=== PATIENT | female | born 1960 ===

== ENCOUNTER → 2022-01-31 12:54 | Outpatient (BNVA) | payer OTHER, SELFPAY | PROVIDERS: PCP Internal Medicine; Visit Provider Nurse Practitioner Family | DX: G43.009 Migraine without aura, not intractable, without status migrainosus (principal); R06.83 Snoring; G47.19 Other hypersomnia | CPT/HCPCS: 99212 ==

== ENCOUNTER 2023-05-26 15:14 | Outpatient (AMB) | payer OTHER, SELFPAY ==
--- NOTE | 2023-05-26 15:16 | MHC.OFFVIS ---
Intake Vital Signs 05/26/23 15:18 Height 5 ft 5 in Weight 179 lb BMI 29.8 Pulse 68 Pulse Source Pulse Oximeter Intake Visit Reasons: f/u appt for migraines-CONF Intake Note: Patient presents for follow up appt. I*m still getting them in the month of april I had a lot of headaches and nausea Allergies No Known Allergies Allergy (Verified 05/26/23 15:19) Medication List - Last Reconciled 05/26/23 by BENNY Dinero acetaminophen mg PO ammonium lactate 12% appl topical aripiprazole 2 mg PO DAILY atorvastatin 10 mg PO DAILY blood sugar diagnostic (FreeStyle Lite Strips) As directed blood-glucose meter (FreeStyle Lite Meter kit) As directed calcium carbonate-vitamin D3 600 mg-10 mcg (400 unit) 2 tabs PO DAILY clotrimazole 1% appl topical DAILY cyclobenzaprine 10 mg PO TID diclofenac sodium 1% 4 grams topical BID diclofenac sodium 75 mg PO BID duloxetine 30 mg PO DAILY duloxetine 60 mg PO DAILY gabapentin mg PO hydroxyzine HCl 25 mg PO DAILY lancets (FreeStyle Lancets) As directed loperamide mg PO loratadine 10 mg PO DAILY magnesium oxide 400 mg PO BEDTIME 30 days meloxicam 15 mg PO DAILY naratriptan take 1/2 - 1 tab at onset of headache; if no relief may repeat 1 tab after at least 4 hrs; max = 2 tabs/24 hrs PO 30 days omega-3 fatty acids-fish oil 300-1,000 mg 1 cap PO DAILY PRN riboflavin (vitamin B2) 400 mg PO DAILY 30 days trazodone 150 mg PO BEDTIME PRN HPI HPI Comments History of Present Illness Details 62-yr-old female presents for f/u visit of migraine. Pt is accompanied by family. Last seen by this account underwriter in 2021. Pt denies any significant interval medical changes. Pt reports she had 1 severe migraine attack, lasting 2 days, and a few mild-mod migraine attacks lasting 1 day per month. The associated nausea is bothersome- meclizine 25mg qd prn- has been helpful. Using Tylenol for milder headaches- helps only some. Using Naratriptan for severe migraine, takes 2 tabs and it will help. Baseline headache characteristics: 8-9/10, pounding eye pain , right frontal, temporal through occipital region pain, a/w photophobia, phonophobia, allodynia, nausea, off-balance dizziness, fatigue, activity intolerance. Pt states she forgot to do HST. She is sleeping on Trazodone. She continues to snore. Having less daytime tiredness. [facility] Medical History (Updated 05/26/23 @ 16:37 by BENNY Dinero) Hypercholesteremia Cervical spondylosis Nephrolithiasis IBS (irritable bowel syndrome) Anxiety Depression Multilevel neural foraminal stenosis Surgical History Hx of colonoscopy Hx of appendectomy Hx of cholecystectomy Hx of hysterectomy Family History Sister Sleep apnea HTN (hypertension) Diabetes Daughter Sleep apnea Son Sleep apnea Father HTN (hypertension) Diabetes Brother HTN (hypertension) Diabetes Social History Household Members: None Alcohol intake: never Patient Tobacco Use Status: Current everyday Tobacco user Cigarettes Per Day: 10 Physical Exam Vital Signs: Last Vital Signs Pulse 68 05/26/23 15:18 BMI result Body Mass Index 29.8 Const General: cooperative and no acute distress Orientation/consciousness: patient oriented x3 Resp Effort & Inspection: normal respiratory effort and able to speak in complete sentences Neuro General: patient oriented x3 Cranial nerves: Yes CN's II-XII intact bilaterally Cognition (Neuro): normal cognition Psych Appearance: grossly normal Mental Status: mental status grossly normal Speech and movement: Normal speech and movement present Affect: normal affect Attitude: cooperative Assessment & Plan Assessment & Plan (1) Migraine without aura: Code(s): G43.009 - Migraine without aura, not intractable, without status migrainosus (2) Nausea: Code(s): R11.0 - Nausea (3) Snoring: Code(s): R06.83 - Snoring (4) Sleep difficulties: Code(s): G47.9 - Sleep disorder, unspecified Plan For migraine prevention: Continue Riboflavin and Magnesium. Start Amitriptyline 10mg qhs. Migraine tx contraindications: Topiramate d/t h/o kidney stones. Futuie consideration- low dose BB. ? For migraine acute treatment: Continue Naratriptan prn at onset of migraine, may take w/ Tylenol prn. Meclizine 25mg bid prn nausea. Information shared on OTC migraine tx options- cooling caps, green light tx, etc. Previous acute migraine tx's: Sumatriptan- caused sleepiness. ? For sleep and am headaches- Pt never did undergo HST to assess for sleep apnea- states she forgot but feels she is sleeping better now. Will monitor sleep for now. f/u in 3-4 months or sooner prn Medications: New amitriptyline 10 mg PO BEDTIME 30 days 30 tabs 3RF meclizine or nausea 25 mg PO BID 30 days PRN 30 tabs 1RF dizziness Refilled riboflavin (vitamin B2) 400 mg PO DAILY 30 days 30 tabs 6RF naratriptan take 1/2 - 1 tab at onset of headache; if no relief may repeat 1 tab after at least 4 hrs; max = 2 tabs/24 hrs PO 30 days 12 tabs 6RF Coding Level of Care Code Est Pt Level 4 (73889) Diagnoses Migraine without aura G43.009 Nausea R11.0 Snoring R06.83 Sleep difficulties G47.9
[2023-05-26 15:18] VITALS: PULSE 68; BMI 29.8
== END 2023-05-26 16:08 | disposition home or self-care (01) ==
PROVIDERS: PCP Internal Medicine; Visit Provider Nurse Practitioner Family
DX: G43.009 Migraine without aura, not intractable, without status migrainosus (principal); R11.0 Nausea; R06.83 Snoring; G47.9 Sleep disorder, unspecified
CPT/HCPCS: 99214

== ENCOUNTER → 2023-05-26 15:14 | Outpatient (BNVA) | payer OTHER, SELFPAY | PROVIDERS: PCP Internal Medicine; Visit Provider Nurse Practitioner Family | DX: G43.009 Migraine without aura, not intractable, without status migrainosus (principal); R11.0 Nausea; R06.83 Snoring; G47.9 Sleep disorder, unspecified | CPT/HCPCS: 99212 ==

== ENCOUNTER 2023-09-24 14:07 | Outpatient (AMB) | payer OTHER, SELFPAY ==
--- NOTE | 2023-09-24 14:11 | A.OFFVIS_ITS ---
Vital Signs 09/24/23 14:18 Height 5 ft 5 in Weight 183 lb 4 oz BMI 30.5 BP 116/70 Blood Pressure Location Lt brachial Position Sitting Pulse 77 Pulse Source Pulse Oximeter Pulse Oximetry (%) 96 Oxygen Delivery Method Room Air Intake Visit Reasons: 3-4 Month-F/U - LVM Intake Note: Patient presents for f/u. doing better with headaches Pharmacy Intake Technician services declined- declination form signed by pt. Pharmacy Intake Technician Required: Yes Pharmacy Intake Technician Name: Valerie AtkinsTe mcnally. Information Interpreted: non-clinical & clinical Allergies No Known Allergies Allergy (Verified 09/24/23 14:18) Medication List - Last Reconciled 09/24/23 by BENNY Dinero acetaminophen mg PO amitriptyline 10 mg PO BEDTIME 30 days ammonium lactate 12% appl topical aripiprazole 2 mg PO DAILY atorvastatin 10 mg PO DAILY blood sugar diagnostic (FreeStyle Lite Strips) As directed blood-glucose meter (FreeStyle Lite Meter kit) As directed calcium carbonate-vitamin D3 600 mg-10 mcg (400 unit) 2 tabs PO DAILY clotrimazole 1% appl topical DAILY cyclobenzaprine 10 mg PO TID diclofenac sodium 1% 4 grams topical BID diclofenac sodium 75 mg PO BID duloxetine 30 mg PO DAILY duloxetine 60 mg PO DAILY gabapentin mg PO hydroxyzine HCl 25 mg PO DAILY lancets (FreeStyle Lancets) As directed loperamide mg PO loratadine 10 mg PO DAILY magnesium oxide 400 mg PO BEDTIME 30 days meclizine 25 mg PO BID PRN 30 days meloxicam 15 mg PO DAILY naratriptan take 1/2 - 1 tab at onset of headache; if no relief may repeat 1 tab after at least 4 hrs; max = 2 tabs/24 hrs PO 30 days omega-3 fatty acids-fish oil 300-1,000 mg 1 cap PO DAILY PRN riboflavin (vitamin B2) 400 mg PO DAILY 30 days trazodone 150 mg PO BEDTIME PRN HPI Comments Details: 62-yr-old female presents for f/u visit. Pt accompanied by her granddtr who pt requests assist w/ [place] interpretation. Pt denies any significant interval medical changes. Pt states she is sleeping better and feeling better overall since starting Amitriptyline. Has only had the start of a mild headache, which has responded well to Naratriptan. Pt has needed to use Naratriptan twice in the last 2 months. Uses meclizine for nausea which helps. Baseline headache characteristics: 8-9/10, pounding eye pain , right frontal, temporal through occipital region pain, a/w photophobia, phonophobia, allodynia, nausea, off-balance dizziness, fatigue, activity intolerance. [facility] Medical History (Updated 05/26/23 @ 16:37 by BENNY Dinero) Hypercholesteremia Cervical spondylosis Nephrolithiasis IBS (irritable bowel syndrome) Anxiety Depression Multilevel neural foraminal stenosis Surgical History Hx of colonoscopy Hx of appendectomy Hx of cholecystectomy Hx of hysterectomy Family History Sister Sleep apnea HTN (hypertension) Diabetes Daughter Sleep apnea Son Sleep apnea Father HTN (hypertension) Diabetes Brother HTN (hypertension) Diabetes Social History Household Members: None Alcohol intake: never Patient Tobacco Use Status: Current everyday Tobacco user Cigarettes Per Day: 10 Physical Exam Vital Signs: Last Vital Signs Pulse 77 09/24/23 14:18 BP 116/70 09/24/23 14:18 Pulse Ox 96 09/24/23 14:18 Oxygen Delivery Method Room Air 09/24/23 14:18 BMI result Body Mass Index 30.5 Const General: cooperative and no acute distress Orientation/consciousness: patient oriented x3 Resp Effort & Inspection: normal respiratory effort and able to speak in complete sentences Neuro General: patient oriented x3 Cranial nerves: Yes CN's II-XII intact bilaterally Cognition (Neuro): normal cognition Psych Appearance: grossly normal Mental Status: mental status grossly normal Speech and movement: Normal speech and movement present Affect: normal affect Attitude: cooperative Assessment & Plan Assessment & Plan (1) Migraine without aura: Code(s): G43.009 - Migraine without aura, not intractable, without status migrainosus Category: Medical (2) Sleep difficulties: Code(s): G47.9 - Sleep disorder, unspecified Category: Medical (3) Nausea: Code(s): R11.0 - Nausea Category: Medical Plan For migraine prevention: Continue Riboflavin and Magnesium. Continue Amitriptyline 10mg qhs. Migraine tx contraindications: Topiramate d/t h/o kidney stones. Futuie consideration- low dose BB. ? For migraine acute treatment: Continue Naratriptan prn at onset of migraine, may take w/ Tylenol prn. Continue Meclizine 25mg bid prn nausea. Information shared on OTC migraine tx options- cooling caps, green light tx, etc. Previous acute migraine tx's: Sumatriptan- caused sleepiness. ? For sleep and am headaches- Pt never did undergo HST to assess for sleep apnea- she previously forgot, but feels she is sleeping better now. Amitriptyline is helping. Monitor. ? f/u in 6 months or sooner prn Medications: Refilled magnesium oxide 400 mg PO BEDTIME 30 days 30 tabs 6RF naratriptan take 1/2 - 1 tab at onset of headache; if no relief may repeat 1 tab after at least 4 hrs; max = 2 tabs/24 hrs PO 30 days 12 tabs 6RF amitriptyline 10 mg PO BEDTIME 30 days 30 tabs 6RF riboflavin (vitamin B2) 400 mg PO DAILY 30 days 30 tabs 6RF Coding Level of Care Code Est Pt Level 4 (54921) Diagnoses Migraine without aura G43.009 Sleep difficulties G47.9 Nausea R11.0
[2023-09-24 14:18] VITALS: BP 116/70; PULSE 77; O2SAT 96; BMI 30.5
== END 2023-09-24 14:38 | disposition home or self-care (01) ==
PROVIDERS: PCP Internal Medicine; Visit Provider Nurse Practitioner Family
DX: G43.009 Migraine without aura, not intractable, without status migrainosus (principal); G47.9 Sleep disorder, unspecified; R11.0 Nausea
CPT/HCPCS: 99214

== ENCOUNTER → 2023-09-24 14:07 | Outpatient (BNVA) | payer OTHER, SELFPAY | PROVIDERS: PCP Internal Medicine; Visit Provider Nurse Practitioner Family | DX: G43.009 Migraine without aura, not intractable, without status migrainosus (principal); G47.9 Sleep disorder, unspecified; R11.0 Nausea | CPT/HCPCS: 99212 ==

== ENCOUNTER 2024-04-21 12:45 | Outpatient (AMB) | payer OTHER, SELFPAY ==
[2024-04-21 12:58] VITALS: BP 92/64; PULSE 90; O2SAT 96
--- NOTE | 2024-04-21 12:58 | MHC.OFFVIS ---
Vital Signs 04/21/24 12:58 Height 5 ft 5 in Weight 180 lb BMI 30.0 BP 92/64 Blood Pressure Location Lt brachial Position Sitting Pulse 90 Pulse Source Pulse Oximeter Pulse Oximetry (%) 96 Oxygen Delivery Method Room Air Intake Visit Reasons: Follow up Full Stack Php Developer Required: No Accompanied by: Grand Child Allergies No Known Allergies Allergy (Verified 04/21/24 13:03) Medication List - Last Reconciled 04/21/24 by BENNY Dinero acetaminophen mg PO amitriptyline 10 mg PO BEDTIME 30 days ammonium lactate 12% appl topical aripiprazole 2 mg PO DAILY atorvastatin 10 mg PO DAILY blood sugar diagnostic (FreeStyle Lite Strips) As directed blood-glucose meter (FreeStyle Lite Meter kit) As directed calcium carbonate-vitamin D3 600 mg-10 mcg (400 unit) 2 tabs PO DAILY clotrimazole 1% appl topical DAILY cyclobenzaprine 10 mg PO TID diclofenac sodium 1% 4 grams topical BID diclofenac sodium 75 mg PO BID duloxetine 30 mg PO DAILY duloxetine 60 mg PO DAILY gabapentin mg PO hydroxyzine HCl 25 mg PO DAILY lancets (FreeStyle Lancets) As directed loperamide mg PO loratadine 10 mg PO DAILY magnesium oxide 400 mg PO BEDTIME 30 days meclizine 25 mg PO BID PRN 30 days meloxicam 15 mg PO DAILY naratriptan take 1/2 - 1 tab at onset of headache; if no relief may repeat 1 tab after at least 4 hrs; max = 2 tabs/24 hrs PO 30 days omega-3 fatty acids-fish oil 300-1,000 mg 1 cap PO DAILY PRN riboflavin (vitamin B2) 400 mg PO DAILY 30 days trazodone 150 mg PO BEDTIME PRN HPI Comments Details: 62-yr-old female presents for f/u visit. Pt accompanied by her granddtr who pt requests assist w/ [place] interpretation. Pt recently underwent left lower ankle tendon repair on 03/26/[address] Escobedo at [place]. Pt reports she is recovering well. Patient reports she is doing overall well. She does ask about her blood pressure today, 92/64. States can be lightheaded at times. Typically drinks a lot a water every day. So far today she has had 2 cups of water. States that amitriptyline is still helping her headaches and sleep. States she has not needed to use her naratriptan since February. Continues to use meclizine for nausea at times which helps. Baseline headache characteristics: 8-9/10, pounding eye pain , right frontal, temporal through occipital region pain, a/w photophobia, phonophobia, allodynia, nausea, off-balance dizziness, fatigue, activity intolerance. [facility] Medical History (Updated 05/26/23 @ 16:37 by BENNY Dinero) Hypercholesteremia Cervical spondylosis Nephrolithiasis IBS (irritable bowel syndrome) Anxiety Depression Multilevel neural foraminal stenosis Surgical History Hx of colonoscopy Hx of appendectomy Hx of cholecystectomy Hx of hysterectomy Family History Sister Sleep apnea HTN (hypertension) Diabetes Daughter Sleep apnea Son Sleep apnea Father HTN (hypertension) Diabetes Brother HTN (hypertension) Diabetes Social History Household Members: None Alcohol intake: never Patient Tobacco Use Status: Current everyday Tobacco user Cigarettes Per Day: 10 Physical Exam Vital Signs: Last Vital Signs Pulse 90 04/21/24 12:58 BP 92/64 04/21/24 12:58 Pulse Ox 96 04/21/24 12:58 Oxygen Delivery Method Room Air 04/21/24 12:58 BMI result Body Mass Index 30.0 Const General: cooperative and no acute distress Orientation/consciousness: patient oriented x3 Resp Effort & Inspection: normal respiratory effort and able to speak in complete sentences Neuro Other: Right lower extremity walking boot in place. Steady gait with crutches General: patient oriented x3 Cranial nerves: Yes CN's II-XII intact bilaterally Cognition (Neuro): normal cognition Psych Appearance: grossly normal Mental Status: mental status grossly normal Speech and movement: Normal speech and movement present Affect: normal affect Attitude: cooperative Assessment & Plan Assessment & Plan (1) Migraine without aura: Code(s): G43.009 - Migraine without aura, not intractable, without status migrainosus Category: Medical (2) Sleep difficulties: Code(s): G47.9 - Sleep disorder, unspecified Category: Medical (3) Nausea: Code(s): R11.0 - Nausea Category: Medical Plan For low BP: Patient encouraged to add 16-20 oz of electrolyte replacement beverage (such as Gatorade, Powerade or liquid IV) a day. Continue good regular water intake. Stand and change positions slowly. For migraine prevention: Continue Riboflavin and Magnesium. Continue Amitriptyline 10mg qhs. Migraine tx contraindications: Topiramate d/t h/o kidney stones. Would avoid anti-HTN tx's, such as beta-blockers, due to risk for worsening hypertension. ? For migraine acute treatment: Continue Naratriptan prn at onset of migraine, may take w/ Tylenol prn. Continue Meclizine 25mg bid prn nausea. Information previously shared on OTC migraine tx options- cooling caps, green light tx, etc. Previous acute migraine tx's: Sumatriptan- caused sleepiness. ? For sleep and am headaches- Pt never did undergo HST to assess for sleep apnea- she previously forgot, but feels she is sleeping better now. Continue amitriptyline 10 mg q.h.s. as above. We will continue to monitor. ? f/u in 6 months or sooner prn Medications: Refilled magnesium oxide 400 mg PO BEDTIME 30 days 30 tabs 6RF naratriptan take 1/2 - 1 tab at onset of headache; if no relief may repeat 1 tab after at least 4 hrs; max = 2 tabs/24 hrs PO 30 days 12 tabs 6RF riboflavin (vitamin B2) 400 mg PO DAILY 30 days 30 tabs 6RF meclizine or nausea 25 mg PO BID 30 days PRN 30 tabs 3RF dizziness amitriptyline 10 mg PO BEDTIME 30 days 30 tabs 6RF Coding Level of Care Code Est Pt Level 4 (33545) Diagnoses Migraine without aura G43.009 Sleep difficulties G47.9 Nausea R11.0
== END 2024-04-21 13:30 | disposition home or self-care (01) ==
PROVIDERS: PCP Internal Medicine; Visit Provider Nurse Practitioner Family
DX: G43.009 Migraine without aura, not intractable, without status migrainosus (principal); G47.9 Sleep disorder, unspecified; R11.0 Nausea
CPT/HCPCS: 99214

== ENCOUNTER → 2024-04-21 12:45 | Outpatient (BNVA) | payer OTHER, SELFPAY | PROVIDERS: PCP Internal Medicine; Visit Provider Nurse Practitioner Family | DX: G43.009 Migraine without aura, not intractable, without status migrainosus (principal); G47.9 Sleep disorder, unspecified; R11.0 Nausea | CPT/HCPCS: 99212 ==

== ENCOUNTER 2024-10-25 12:59 | Outpatient (AMB) | payer OTHER, SELFPAY ==
[2024-10-25 13:02] VITALS: BP 118/82; PULSE 98; O2SAT 96
--- NOTE | 2024-10-25 13:02 | A.OFFVIS_ITS ---
Vital Signs 10/25/24 13:02 Height 5 ft 5 in Weight 180 lb 2 oz BMI 30.0 BP 118/82 Blood Pressure Location Lt brachial Position Sitting Pulse 98 Pulse Source Pulse Oximeter Pulse Oximetry (%) 96 Oxygen Delivery Method Room Air Intake Visit Reasons: 6 mo f/u Intake Note: Patient presents 6 month follow up for migraines. 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 Required: No Allergies No Known Allergies Allergy (Verified 10/25/24 13:05) Medication List - Last Reconciled 10/25/24 by BENNY Dinero acetaminophen mg PO amitriptyline 10 mg PO BEDTIME 30 days ammonium lactate 12% appl topical aripiprazole 2 mg PO DAILY atorvastatin 10 mg PO DAILY blood sugar diagnostic (FreeStyle Lite Strips) As directed blood-glucose meter (FreeStyle Lite Meter kit) As directed calcium carbonate-vitamin D3 600 mg-10 mcg (400 unit) 2 tabs PO DAILY clotrimazole 1% appl topical DAILY cyclobenzaprine 10 mg PO TID diclofenac sodium 1% 4 grams topical BID diclofenac sodium 75 mg PO BID duloxetine 30 mg PO DAILY duloxetine 60 mg PO DAILY gabapentin mg PO hydroxyzine HCl 25 mg PO DAILY lancets (FreeStyle Lancets) As directed loperamide mg PO loratadine 10 mg PO DAILY magnesium oxide 400 mg PO BEDTIME 30 days meclizine 25 mg PO BID PRN 30 days meloxicam 15 mg PO DAILY naratriptan take 1/2 - 1 tab at onset of headache; if no relief may repeat 1 tab after at least 4 hrs; max = 2 tabs/24 hrs PO 30 days omega-3 fatty acids-fish oil 300-1,000 mg 1 cap PO DAILY PRN riboflavin (vitamin B2) 400 mg PO DAILY 30 days trazodone 150 mg PO BEDTIME PRN HPI Comments Details: 62-yr-old female presents for f/u visit. Pt accompanied by her granddtr who pt requests assist w/ [place] interpretation. Pt recently underwent right ankle surgery in June by Dr Escobedo at [place]. Pt reports she has significant residual pain as well as swelling despite doing PT, and is working w/ Dr Escobedo who suggested trying a course of steroids or injection- but pt is hesitant to try these d/t risk of weight gain. Using as needed analgesics w/ some effect. She finds some benefit from applying ice. Patient reports her last migraine attack was 2.5 months ago. States that amitriptyline is still helping her headaches and sleep. States naratriptan and rest is helpful. Continues to use meclizine for nausea at times which helps. Baseline headache characteristics: 8-9/10, pounding eye pain , right frontal, temporal through occipital region pain, a/w photophobia, phonophobia, allodynia, nausea, off-balance dizziness, fatigue, activity intolerance. [facility] Medical History Hypercholesteremia Cervical spondylosis Nephrolithiasis IBS (irritable bowel syndrome) Anxiety Depression Multilevel neural foraminal stenosis Surgical History Hx of colonoscopy Hx of appendectomy Hx of cholecystectomy Hx of hysterectomy Family History Sister Sleep apnea HTN (hypertension) Diabetes Daughter Sleep apnea Son Sleep apnea Father HTN (hypertension) Diabetes Brother HTN (hypertension) Diabetes Social History Household Members: None Alcohol intake: never Patient Tobacco Use Status: Current everyday Tobacco user Cigarettes Per Day: 10 Physical Exam Vital Signs: Last Vital Signs Pulse 98 10/25/24 13:02 BP 118/82 10/25/24 13:02 Pulse Ox 96 10/25/24 13:02 Oxygen Delivery Method Room Air 10/25/24 13:02 BMI result Body Mass Index 30.0 Const General: cooperative and no acute distress Orientation/consciousness: patient oriented x3 Resp Effort & Inspection: normal respiratory effort and able to speak in complete sentences Neuro Other: Right posterior ankle mild swelling and postsurgical scar Steady gait General: patient oriented x3 Cranial nerves: Yes CN's II-XII intact bilaterally Cognition (Neuro): normal cognition Psych Appearance: grossly normal Mental Status: mental status grossly normal Speech and movement: Normal speech and movement present Affect: normal affect Attitude: cooperative Assessment & Plan Assessment & Plan (1) Migraine without aura: Code(s): G43.009 - Migraine without aura, not intractable, without status migrainosus Category: Medical Qualifiers: Intractability: not intractable Status migrainosus presence: without status migrainosus Qualified Code(s): G43.009 - Migraine without aura, not intractable, without status migrainosus (2) Sleep difficulties: Code(s): G47.9 - Sleep disorder, unspecified Category: Medical (3) Nausea: Code(s): R11.0 - Nausea Category: Medical Plan For right ankle pain: Advised to follow-up with orthopedics as scheduled, however in the meantime, encouraged patient to elevate leg as tolerated, try alternating heat and ice compresses. For migraine prevention: Continue Riboflavin and Magnesium. Continue Amitriptyline 10mg qhs. Migraine tx contraindications: Topiramate d/t h/o kidney stones. Would avoid anti-HTN tx's, such as beta-blockers, due to risk for worsening hypertension. ? For migraine acute treatment: Continue Naratriptan prn at onset of migraine, may take w/ Tylenol prn. Continue Meclizine 25mg bid prn nausea. Information previously shared on OTC migraine tx options- cooling caps, green light tx, etc. Previous acute migraine tx's: Sumatriptan- caused sleepiness. ? For sleep and am headaches- Pt never did undergo HST to assess for sleep apnea- she previously forgot, but feels she is sleeping better now. Continue amitriptyline 10 mg q.h.s. as above. We will continue to monitor. ? f/u in 6 months or sooner prn Medications: Changed From riboflavin (vitamin B2) 400 mg PO DAILY 30 days 30 tabs 6RF To riboflavin (vitamin B2) 400 mg PO DAILY 90 tabs 3RF 90 days From magnesium oxide 400 mg PO BEDTIME 30 days 30 tabs 6RF To magnesium oxide 400 mg PO BEDTIME 90 tabs 3RF 90 days Refilled meclizine or nausea 25 mg PO BID PRN 30 tabs 3RF dizziness 30 days amitriptyline 10 mg PO BEDTIME 30 tabs 6RF 30 days naratriptan take 1/2 - 1 tab at onset of headache; if no relief may repeat 1 tab after at least 4 hrs; max = 2 tabs/24 hrs PO 12 tabs 6RF 30 days Coding Level of Care Code Est Pt Level 4 (25561) Diagnoses Migraine without aura and without status migrainosus, not intractable G43.009 Intractability: not intractable Status migrainosus presence: without status migrainosus Sleep difficulties G47.9 Nausea R11.0
--- OUTSIDE RECORDS SUMMARY | 2024-10-25 13:55 | XMS_ITS | Clinical Summary ---
Author Organization [facility] Address [address] [place] [address] Care Team Providers Care Consulting Technical Director Name Role Phone Unavailable Primary Care Provider Unavailabl e Allergies No known active allergies Medications Medication Sig Dispensed Refills Start Date End Date Status ARIPiprazole (ABILIFY) 2 MG tablet TOME EDWARDO TABLETA TODOS LOS D 0 11/29/2022 Active atorvastatin (LIPITOR) tablet 20 mg TOME EDWARDO TABLETA TODOS LOS D 0 09/03/2022 Active Diclofenac Sodium 1 % GEL APLICAR 4GM TOPICAMENTE 2 VECES AL JAYLON. 0 09/30/2022 Active DULoxetine (CYMBALTA) DR capsule 30 mg 0 12/07/2022 Active gabapentin (NEURONTIN) 600 MG tablet TOME EDWARDO TABLETA DOS VECES AL D A 0 09/22/2022 Active hydrOXYzine (ATARAX) 25 MG tablet TOME EDWARDO TABLETA TODOS LOS D CUANDO SEA NECESARIO PARA LA ANSIEDAD 0 11/28/2022 Active magnesium oxide (MAG-OX) 400 MG tablet TOME EDWARDO TABLETA TODOS LOS D AL ACOSTARSE 0 11/10/2022 Active traZODone (DESYREL) 150 MG tablet TOME EDWARDO TABLETA TODOS LOS D AL ACOSTARSE CUANDO SEA NECESARIO 0 12/01/2022 Active omeprazole (PriLOSEC) 20 MG capsule TOME EDWARDO C PSULA TODOS LOS D 0 09/04/2022 Active Social History Tobacco Use Types Packs/Day Years Used Date Smoking Tobacco: Every Day Cigarettes 0.5 15 Smokeless Tobacco: Never Tobacco Cessation:Ready to Q uit: Not Asked; Counseling Given: Not Answered Alcohol Use Standard Drinks/Week Comments Never 0 (1 standard drink = 0.6 oz pur e alcohol) Sex and Gender Information Value Date Recorded Sex Assigned at Not on file Gender Identity Not on file Sexual Orientation Not on file Last Filed Vital Signs Vital Sign Reading Time Taken Comments Blood Pressure 135/81 01/06/2023 7:26 AM EDT Pulse 84 01/06/2023 7:26 AM EDT Temperature 36.1 C (97 F) 01/06/2023 7:26 AM EDT Respiratory Rate 16 01/06/2023 7:26 AM EDT Oxygen Saturation 98% 01/06/2023 7:26 AM EDT Inhaled Oxygen Concentration - - Weight 81.6 kg (180 lb) 01/06/2023 7:26 AM EDT Height 162.6 cm (5' 4 ) 01/06/2023 7:26 AM EDT Body Mass Index 30.9 01/06/2023 7:26 AM EDT Plan of Treatment Health Maintenance Due Date Last Done Comments Hepatitis C Screening 1962 COVID-19 Vaccine (#1) 06/23/1963 Pneumococcal Vaccine (1 of 2 - PCV) 1968 Depression Screening 1974 BMI Counseling 1980 Preventative Health Evaluation 1980 Tobacco Cessation Counseling 1980 Cervical Cancer Screening (P ap Smear) 12/24/1983 Colon Cancer Screening (Colonoscopy) 12/24/2007 Breast Cancer Screening (Mammogram) 2012 Shingrix-Zoster Vaccine (1 of 2) 2012 Influenza Vaccine (#1) 2024 01/25/2022 DTap / Tdap / Td (2 - Td or Tdap) 06/04/2029 020 RSV Adult > 60+ Yrs or Pregn ant (1 - 1-dose 75+ series) 2037 Hepatitis B Vaccines Aged Out No long er eligible based on patient's age to complete this topic RSV Ped < 20 months Aged Out No longe r eligible based on patient's age to complete this topic
--- OUTSIDE RECORDS SUMMARY | 2024-10-25 13:55 | XMS_ITS | Clinical Summary ---
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 01/18/20 22 Active DULoxetine (CYMBALTA) [address] capsule Take 1 capsule (60 mg total) by mouth at bedtime. 01/03/20 22 Active hydrOXYzine HCL (ATARAX) 25 mg tablet Take 1 tablet (25 mg total) by mouth 1 (one) time each day if needed. 01/10/20 22 Active loperamide (IMODIUM) 2 mg capsule Take 1 capsule (2 mg total) by mouth 4 (four) times a day if needed for diarrhea. for up to 180 days. 01/28/20 23 Active magnesium oxide (MAG-OX) 400 mg (241.3 elemental magnesium) tablet Take 1 tablet (400 mg total) by mouth. MAGO EDWARDO TABLETA POR V A ORAL TODOS LOS D AL ACOSTARSE 02/01/20 22 Active naratriptan (AMERGE) 2.5 mg tablet Take 1 tablet (2.5 mg total) by mouth. PLEASE SEE ATTACHED FOR DETAILED DIRECTIONS 01/03/20 22 Active omega-3 acid ethyl esters (LOVAZA) 1 gram capsule Take 1 capsule (1 g total) by mouth 1 (one) time each day. 01/28/20 Active traZODone (DESYREL) 150 mg tablet Take 1 tablet (150 mg total) by mouth at bedtime. 12/02/19 23 Active isopropyl alcohol-benzoca ine 70-6 % pads, medicated 1 Units by Not Applicable route. 11/17/19 24 Active alcohol swabs pads, medicated 1 UNITS BY DOES NOT APPLY ROUTE 2 TIMES DAILY. 200 each 1 04/30/19 25 Active calcium carbonate-vitam in D3 600 mg-5 mcg (200 unit) per tablet TOME 1 TABLETA POR VIA ORAL TODOS LOS MCCORD 90 tablet 1 05/20/19 25 Active Additional Information Patient taking differently: 1 tablet oral Daily, Reported on 06/29/2024 famotidine (PEPCID) 40 mg tablet Take 1 tablet (40 mg total) by mouth at bedtime. 30 each 3 05/18/19 25 026 Active atorvastatin (LIPITOR) 80 mg tablet Take 1 tablet (80 mg total) by mouth 1 (one) time each day. 90 each 05/28/19 25 026 Active oxyCODONE (ROXICODONE) 5 mg immediate release tabletIndicatio ns:Strain of Achilles tendon, right, sequela Take 1 tablet (5 mg total) by mouth every 4 (four) hours if needed for severe pain. Max Daily Amount: 30 mg 35 tablet 07/03/19 25 Active blood sugar diagnostic (FreeStyle Lite Strips) test strip USE TO TEST BLOOD SUGAR ONCE DAILY 100 strip 5 08/05/19 25 Active freestyle (FreeStyle Lancets) 28 gauge lancets 1 (one) time each day in the morning. 100 each 11 09/23/19 25 Active dulaglutide (TRULICITY) 1.5 mg/0.5 mL pen injector injection Inject 0.5 mL (1.5 mg total) under the skin every 7 (seven) days. 6 mL 09/23/19 25 026 Active nicotine (NICODERM CQ) 14 mg/24 hr APLIQUE UN PARCHE ON THE SKIN ONCE DAILY AT THE SAME TIME 28 patch 10/05/19 25 Active gabapentin (NEURONTIN) 600 mg tablet TOME 1 TABLETA POR VIA ORAL DOS VECES AL JAYLON 60 tablet 10/12/19 25 Active omeprazole (PriLOSEC) [address] capsuleIndicati ons:Gastro-esop hageal reflux disease without esophagitis TOME 1 CAPSULA POR VIA ORAL TODOS LOS MCCORD 90 capsule 2 10/14/19 25 Active lidocaine (LIDODERM) 5 % patch Apply 1 patch topically 1 (one) time each day. Remove & discard patch within 12 hours or as directed by . 30 each 2 10/21/19 25 025 Active diclofenac (Voltaren Arthritis Pain) 1 % topical gel Apply 4 g topically 2 (two) times a day. 240 g 1 10/21/19 25 025 Active omeprazole (PriLOSEC) [address] capsuleIndicati ons:Gastro-esop hageal reflux disease without esophagitis TOME 1 CAPSULA POR VIA ORAL TODOS LOS MCCORD 90 capsule 1 04/12/20 24 025 Discontinued nicotine (NICODERM CQ) 14 mg/24 hr APLIQUE UN PARCHE ON THE SKIN ONCE DAILY AT THE SAME TIME 28 patch 09/08/19 25 025 Discontinued gabapentin (NEURONTIN) 600 mg tablet Take 1 tablet (600 mg total) by mouth 2 (two) times a day. 60 tablet 09/14/19 25 025 Discontinued Active Problems Problem Noted Date Diagnosed Date Rupture Achilles tendon, right, subsequent encou nter 06/28/2024 Strain of Achilles tendon, right, sequela 2023 Exostosis of right foot 03/22/2024 Tobacco abuse 01/29/2024 Assessment & Plan (05/28/2024 4:31 PM EST): During this visit, I also counseled Sean Moran concerning smoking cessation. I spent 15 minutes discussing tobacco use and strategies to quit smoking. After this discussion, the patient has decided that they are ready to quit smoking at this time and would like to try the following smoking cessation technique(s) pharmacotherapy (nicotine patches). Family history of colon cancer in mother 024 History of abnormal mammogram 01/29/2024 Overview (01/29/2024): Follows with [facility] breast and wellness. She has had multiple left breast biopsies that were benign between 1999 and 2003 Anxiety disorder 01/12/2024 Overview (01/12/2024): [address] Depression 01/12/2024 IBS (irritable bowel syndrome) 01/12/2024 Nephrolithiasis 01/12/2024 Overweight (BMI 25.0-29.9) 11/17/2023 Low back pain 10/25/2022 CKD (chronic kidney disease) stage 3, GFR 30-59 ml/min ([facility] V24, [facility] V28) 01/25/2022 Assessment & Plan (05/28/2024 4:31 PM EST): Last GFR 57 Importance of diet control was discussed with the patient. Instructed to avoid NSAIDs and nephrotoxic's. Obesity (BMI 30.0-34.9) 01/25/2022 Type II diabetes mellitus wi th renal manifestations ([facility] V24, [facility] V28) 03/14/2021 Assessment & Plan (05/28/2024 4:31 PM EST): Fair control of diabetes. A1C 7.3. Currently on Trulicity 0.75mg week. Patient will continue with yearly Podiatric and Ophthomologic evaluations. We will check a hemoglobin A1c. Patient will follow up in 3 months Orders: Hemoglobin A1c; Future Lipid panel with reflex to direct LDL; Future Comprehensive metabolic panel; Future Hemoglobin A1c; Future History of COVID-19 01/24/2020 Hypercholesteremia 07/22/2019 Assessment & Plan (05/28/2024 4:31 PM EST): Given the patients cardiac risk profile, the patient requires an LDL cholesterol of less than 70. On target. I have instructed the patient on the principles of a low cholesterol diet and the importance of regular exercise, continue atorvastatin to 80 mg a day. Will recheck levels before her next visit. Neural foraminal stenosis, multilevel 06/09/2019 Overview (01/12/2024): With diffuse disc bulging, status post MRI of the lumbar spine May 2019. L3-L4 with moderate central and foraminal stenosis Cervical spondylosis 02/03/2019 Vitamin D deficiency 01/06/2017 Encounters Date Type Department Care Team Description 10/20/2024 1:15 PM EDT Office Visit Orthopedic Surgery [facility] [address] [phone] Paul Escobedo, DPM Tendonitis, Achilles, right (Primary Dx); Arthritis of right ankle 09/03/2024 10:00 AM EDT Office Visit Orthopedic Surgery [facility] [address] [phone] Paul Escobedo, DPM Ingrowing nail (Primary Dx); Post-operative state 08/10/2024 1:00 PM EDT - 08/10/2024 11:59 PM EDT Hospital Encounter Radiology Department - [address] [phone] Neck mass Discharge Disposition: Home or Self Care 08/03/2024 3:00 PM EDT Office Visit Orthopedic Surgery [place] [address] [phone] Paul Escobedo, DPM Rupture Achilles tendon, right, subsequent encounter (Primary Dx); Post-operative state from Last 3 Months Immunizations Name Administration Dates Next Due Influenza Quadravalent, MDCK , 0.5ml, preservative free (Flucelvax) 6mo and older 01/25/2022 Pneumococcal conjugate 20 va lent (Prevnar 20, PCV 20) 2mo and older 01/27/2023 Tdap Tetanus diptheria acell ular pertussis (Boostrix; Adacel) 7yo and older 06/04/2019 Surgical History Surgery Date Site/Laterality Comments WRIST SURGERY 05/18/15 Left PROCEDURE: HISTORICAL WRIST SURGERY; COMMENT: Joann Gutierrez COLONOSCOPY 2013 PROCEDURE: HISTORICAL COLONOSCOPY; COMMENT: andrey Penaloza pt normal BREAST REDUCTION PROCEDURE: SC BREAST REDUCTION OTHER SURGICAL HISTORY PROCEDURE: ---- OTHER ----; COMMENT: left breast abscess drainage TUBAL LIGATION PROCEDURE: HISTORICAL TUBAL LIGATION CHOLECYSTECTOMY PROCEDURE: HISTORICAL CHOLECYSTECTOMY APPENDECTOMY PROCEDURE: HISTORICAL APPENDECTOMY HYSTERECTOMY 01/30/2018 PROCEDURE: HISTORICAL VAGINAL HYSTERECTOMY W/O BSO Medical History Medical History Date Comments IBS (irritable bowel syndrome) D X:IBS (irritable bowel syndrome) Anxiety disorder DX:Anxiety diso rder; COMMENT: [address] Depression DX:Depression Vitamin D deficiency 01/06/2017 DX:Vitamin D deficiency Nephrolithiasis DX:Nephrolithias is Tobacco abuse 02/03/2019 DX:Tobacco abuse Cervical spondylosis 02/03/2019 DX:Cervical spondylosis Arthritis, lumbar spine 02/03/2019 DX:Arthr itis, lumbar spine; COMMENT: Mild s/p xray 2018 Migraine DM (diabetes mellitus) ([facility] V24, [facility] V28) GERD (gastroesophageal reflux disease) Dental disease upper Joint pain Right Achilles tendinitis Family History Medical History Relation Name Comments Alcohol abuse Brother Dementia Father Diabetes Father Dementia Mother Diabetes Sister Hypertension Sister Relation Name Status Comments Brother Daughter Alive Father (Age 92) Mother Alive Sister Alive Son 1 Alive Son 2 Alive Son 3 Alive Social History Tobacco Use Types Packs/Day Years Used Date Smoking Tobacco: Every Day Cigarettes Smokeless Tobacco: Never Tobacco Cessation:Ready to Q uit: Not Asked; Counseling Given: Not Answered Alcohol Use Standard Drinks/Week Comments Never 0 (1 standard drink = 0.6 oz pur e alcohol) Interpersonal Safety Answer Date Record ed Physical Abuse 03/26/2024 Verbal Abuse 03/26/2024 Comments No Sex and Gender Information Value Date Recorded Sex Assigned at Female 03/18/2024 9:42 AM EST Legal Sex Female 9:43 AM EST Gender Identity Female 03/18/2024 9:42 AM EST Sexual Orientation Straight 03/18/2024 9: 42 AM EST Obstetrics History Last Filed Vital Signs Vital Sign Reading Time Taken Comments Blood Pressure 118/74 07/02/2024 3:04 PM EDT Pulse 74 07/02/2024 3:04 PM EDT Temperature 36 C (96.8 F) 07/02/2024 3:04 PM EDT Respiratory Rate 18 07/02/2024 3:04 PM EDT Oxygen Saturation 97% 07/02/2024 3:04 PM EDT Inhaled Oxygen Concentration - - Weight 81.6 kg (180 lb) 07/19/2024 1:03 PM EDT Height 165.1 cm (5' 5 ) 06/29/2024 8:00 AM EDT Body Mass Index 29.95 06/29/2024 8:00 AM EDT Plan of Treatment Upcoming Encounters Date Type Department Care Team (Late st Contact Info) Description 10/26/2024 11:30 AM EDT Office Visit Adult Medicine [facility] [address] [place] [address] Sofya Barnes PA [address] [place] [address] 12/09/2024 1:15 PM EDT Office Visit Orthopedic Surgery - [place] [address] [phone] Paul Escobedo, DPIrma [address] [phone] Health Maintenance Due Date Last Done Comments Zoster Vaccines (1 of 2) 1981 HIV Screening 03/22/2022 RSV Immunization Adult Patients (1 - Risk 60-74 years 1-dose series) 2022 Depression Screening 07/06/2024 07/07/2023 Diabetes: Annual Urine Albumin-Creatinine Ratio (uACR) 07/06/2024 07/07/2023 Social Influencers of Health Screening 07/06/2024 07/07/2023 Diabetes: Annual Foot Exam 10/29/2024 10/30/2023 Diabetes: Blood Sugar Control Test (HGBA1C) 11/25/2024 05/28/2024, 03/17/2024, 02/12/2024, Additional history exists Diabetes: Annual Retina Eye Exam 12/08/2024 12/09/2023 Diabetes: Annual GFR (Glomerular Filtration Rate) 03/17/2025 03/17/2024, 02/12/2024, 10/30/2023, Additional history exists Breast Cancer Screening 09/08/2025 09/09/2023 Cholesterol Screening (Lipid Panel) 02/11/2029 02/12/2024, 07/07/2023 DTaP,Tdap,and Td Vaccines (2 - Td or Tdap) 06/04/2029 06/04/2019 Colorectal Cancer Screening: Colonoscopy 02/17/2034 02/18/2024, 01/16/2019 Hepatitis C Screening Completed 06/04/2019 COVID-19 Vaccine Discontinued 08/26/2020, 07/29/2020 Influenza Vaccine Discontinued 01/25/2022 Pneumococcal Vaccine: 50+ Years Completed 01/27/2023 HIB Vaccines Aged Out No longer eligi ble based on patient's age to complete this topic HPV Vaccines Aged Out No longer eligi ble based on patient's age to complete this topic Hepatitis A Vaccines Aged Out No long er eligible based on patient's age to complete this topic Hepatitis B Vaccines Aged Out No long er eligible based on patient's age to complete this topic IPV Vaccines Aged Out No longer eligi ble based on patient's age to complete this topic MMR Vaccines Aged Out No longer eligi ble based on patient's age to complete this topic Meningococcal ACWY Vaccine Aged Out N o longer eligible based on patient's age to complete this topic Meningococcal B Vaccine Aged Out No l onger eligible based on patient's age to complete this topic RSV Immunization Patients Under 20 months Aged Out No longer eligible based on patient's age to complete this topic Varicella Vaccines Aged Out No longer eligible based on patient's age to complete this topic Medical Devices Implanted Type Area Freight Elevator Operator Device Identifier Shelf Expiration Date Model / Serial / Lot Implant Bioinductive W/Arth Del [facility] - Pending Sale To [facility] - [id number] Implanted:Qty: 1 on 03/26/2024 by Paul Escobedo DPM at [facility] [employer] Right: Achilles Tendon [employer] - ENDOSCOPY 08/08/2026 [id number] / NA / [id number] Ultrabridge Implanted:Qty: 1 on 03/26/2024 by Paul Escobedo DPM at [facility] Right: Achilles Tendon [employer] 12/22/2026 [id number] / NA / [id number] [employer] Ultrabridge Kit Implanted:Qty: 1 on 07/02/2024 by Paul Escobedo DPM at [facility] Right: Ankle [employer] 01/28/2027 [id number] / N/A / N/A Procedures Procedure Name Priority Date/Time Associated Diagnosis Comments US HEAD NECK SOFT TISSUE Routine 08/10/2024 1:23 PM EDT Neck mass XR FOOT 3+ VIEWS RIGHT Routine 08/03/2024 3:29 PM EDT Post-operative state HEMOGLOBIN A1C Routine 05/28/2024 1:11 PM EST Type 2 diabetes mellitus with diabetic microalbuminuria, without long-term current use of insulin (CMS/HCC V24, CMS/HCC V28) COMPREHENSIVE METABOLIC PANEL Routine 03/17/2024 10:57 AM EST Preop cardiovascular exam COLONOSCOPY Routine 02/18/2024 2:29 PM EST Personal history of colon polyps, unspecified DIABETES EYE EXAM Routine 12/09/2023 DIABETES FOOT EXAM Routine 10/30/2023 DEPRESSION SCREENING Routine 07/07/2023 URINE ALBUMIN CREATININE RATIO Routine 07/07/2023 LIPID PANEL Routine 07/07/2023 HEPATITIS C SCREENING Routine 06/04/2019 from Last 3 Months or Most Recently Relevant to Health Maintenance Results * US Head Neck Soft Tissue (08/10/2024 1:23 PM EDT) Anatomical Region Laterality Modality Head and Neck Ultrasound 08/10/2024 1:33 PM EDT Narrative 08/10/2024 1:34 PM EDT Limited ultrasound of the soft tissues of the neck. History lump in the right submandibular area. Examination was directed by the patient to the area of concern. It corresponds to morphologically normal lymph nodes measuring 0.7 x 0.7 x 0.4 cm and thumb 0.5 x 0.3 x 0.4 cm. No evidence of other cystic or solid masses or adenopathy. CONCLUSIONS: Palpable abnormality corresponds to morphologically normal lymph nodes. -------- FINAL REPORT -------- Dictated By: Natasha Kyle Dictated Date: 08/10/2024 13:33 ET Assigned Physician: Natasha Kyle Reviewed and Electronically Signed By: Natasha Kyle Signed Date: 08/10/2024 13:34 ET Workstation ID: [id number] Transcribed By: Self Edit Transcribed Date: 08/10/2024 13:33 ET Procedure Note Natasha Kyle MD - 08/10/2024 Limited ultrasound of the soft tissues of the neck. History lump in the right submandibular area. Examination was directed by the patient to the area of concern. Itcorresponds to morphologically normal lymph nodes measuring 0.7 x 0.7 x0.4 cm and thumb 0.5 x 0.3 x 0.4 cm. No evidence of other cystic or solidmasses or adenopathy. CONCLUSIONS: Palpable abnormality corresponds to morphologically normallymph nodes. -------- FINAL REPORT -------- Dictated By: Natasha Kyle Dictated Date: 08/10/2024 13:33 ET Assigned Physician: Natasha Kyle Reviewed and Electronically Signed By: Natasha Kyle Signed Date: 08/10/2024 13:34 ET Workstation ID: [id number] Transcribed By: Self Edit Transcribed Date: 08/10/2024 13:33 ET us Marielle Boudreaux MD IMG US PROCEDURES Final Result * XR Foot 3+ Views Right (08/03/2024 3:29 PM EDT) Anatomical Region Laterality Modality Lower Extremities, Foot Right Computed Radiography Narrative 08/03/2024 5:34 PM EDT Right foot 3 views Stable postoperative changes us Paul Escobedo DPM IMG XR PROCEDURES Final R esult * (ABNORMAL) Hemoglobin A1c (05/28/2024 1:11 PM EST) Hemoglobin A1C 7.6(H) <6.5 % LAB CHEMISTRY METHOD 05/28/2024 8:44 PM [facility] Mean Bld Glu Estim. 171 mg/dL LAB CHEMISTRY METHOD 05/28/2024 8:44 PM [facility] Blood Venous blood specimen / Unknown Venipuncture / Unknown 05/28/2024 1:11 PM EST 05/28/2024 1:11 PM EST us Marielle Boudreaux MD LAB BLOOD ORDERABL ES Final Result [facility] [address] [place] [address], [place] [phone] * (ABNORMAL) Comprehensive metabolic panel (03/17/2024 10:57 AM EST) Sodium 136 133 - 145 mmol/L LAB CHEMISTRY METHOD 03/17/2024 2:28 PM [facility] Potassium 4.8 3.5 - 5.5 mmol/L LAB CHEMISTRY METHOD 03/17/2024 2:28 PM [facility] Chloride 106 96 - 110 mmol/L LAB CHEMISTRY METHOD 03/17/2024 2:28 PM [facility] CO2 24 21 - 32 mmol/L LAB CHEMISTRY METHOD 03/17/2024 2:28 PM [facility] Anion Gap 6 3 - 11 LAB CHEMISTRY METHOD 03/17/2024 2:28 PM [facility] Glucose 182(H) 70 - 100 mg/dL LAB CHEMISTRY METHOD 03/17/2024 2:28 PM [facility] BUN 19 5 - 25 mg/dL LAB CHEMISTRY METHOD 03/17/2024 2:28 PM [facility] Creatinine 1.10 0.50 - 1.10 mg/dL LAB CHEMISTRY METHOD 03/17/2024 2:28 PM [facility] eGFR 57(L) >=60 mL/min/1. 73m2 LAB CHEMISTRY METHOD 03/17/2024 2:28 PM [facility] Comment:Calculation based on the Chronic Kidney Disease Epidemiology Collaboration (CKD-EPI) equation refit without adjustment for race. BUN/Creatinine Ratio 17.3 LAB CHEMISTRY METHOD 03/17/2024 2:28 PM [facility] Calcium 9.9 8.5 - 10.5 mg/dL LAB CHEMISTRY METHOD 03/17/2024 2:28 PM [facility] AST (SGOT) 16 10 - 42 unit/L LAB CHEMISTRY METHOD 03/17/2024 2:28 PM [facility] ALT (SGPT) 25 10 - 60 unit/L LAB CHEMISTRY METHOD 03/17/2024 2:28 PM [facility] Alkaline Phosphatase 107 42 - 121 unit/L LAB CHEMISTRY METHOD 03/17/2024 2:28 PM [facility] Total Protein 8.1(H) 6.0 - 8.0 g/dL LAB CHEMISTRY METHOD 03/17/2024 2:28 PM [facility] Albumin 4.1 3.2 - 5.0 g/dL LAB CHEMISTRY METHOD 03/17/2024 2:28 PM [facility] Total Bilirubin 0.3 0.0 - 1.4 mg/dL LAB CHEMISTRY METHOD 03/17/2024 2:28 PM [facility] Blood Venous blood specimen / Unknown Venipuncture / Unknown 03/17/2024 10:57 AM EST 03/17/2024 10:57 AM EST us Marielle Boudreaux MD LAB BLOOD ORDERABL ES Final Result [facility] [address] [place] [address], * COLONOSCOPY Anesthesia - MAC; [facility] ENDOSCOPY (02/18/2024 2:29 PM EST) Anatomical Region Laterality Modality Endoscopy 02/18/2024 1:22 PM EST Narrative 02/18/2024 2:27 PM [facility] GI Patient Name: Sean Moran Procedure Date: 02/18/2024 1:22 PM Date of : 1960 Age: 63 Room: ROOM 16 Gender: Female Note Status: Finalized Attending MD: Quentin Ricardo DO, [id number] Procedure Date No Time: 02/18/2024 Procedure: Colonoscopy Indications: High risk colon cancer surveillance: Personal history of colonic polyps Providers: Quentin Ricardo DO Referring MD: KATELYN Wiley Medicines: Monitored Anesthesia Care Complications: No immediate complications. Estimated blood loss: Minimal. Estimated Blood Loss: Estimated blood loss was minimal. Procedure: Pre-Anesthesia Assessment: - - Prior to the procedure, a History and Physical was performed, and patient medications and allergies were reviewed. The patient is competent. The risks and benefits of the procedure and the sedation options and risks were discussed with the patient. All questions were answered and informed consent was obtained. Patient identification and proposed procedure were verified by the physician, the nurse, the anesthesiologist, the garageman and the wireless field technician in the pre-procedure area in the endoscopy suite. Mental Status Examination: alert and oriented. Airway Examination: normal oropharyngeal airway and neck mobility. Respiratory Examination: clear to auscultation. CV Examination: normal. Prophylactic Antibiotics: The patient does not require prophylactic antibiotics. Prior Anticoagulants: The patient has taken no anticoagulant or antiplatelet agents. ASA Grade Assessment: II - A patient with severe systemic disease. After reviewing the risks and benefits, the patient was deemed in satisfactory condition to undergo the procedure. The anesthesia plan was to use monitored anesthesia care (MAC). Immediately prior to administration of medications, the patient was re-assessed for adequacy to receive sedatives. The heart rate, respiratory rate, oxygen saturations, blood pressure, adequacy of pulmonary ventilation, and response to care were monitored throughout the procedure. The physical status of the patient was re-assessed after the procedure. After I obtained informed consent, the scope was passed under direct vision. Throughout the procedure, the patient's blood pressure, pulse, and oxygen saturations were monitored continuously.The Colonoscope was introduced through the anus and advanced to the cecum, identified by appendiceal orifice and ileocecal valve. The colonoscopy was performed without difficulty. The patient tolerated the procedure well. The quality of the bowel preparation was good. Findings: Hemorrhoids were found on perianal exam. A few small-mouthed diverticula were found in the sigmoid colon and descending colon. There was no evidence of diverticular bleeding. A 6 mm polyp was found in the rectum. The polyp was sessile. The polyp was removed with a cold snare. Resection and retrieval were complete. Estimated blood loss was minimal. The exam was otherwise without abnormality on direct and retroflexion views. Impression: - Hemorrhoids found on perianal exam. - One 6 mm polyp in the rectum, removed with a cold snare. Resected and retrieved. - The examination was otherwise normal on direct and retroflexion views. Recommendation: - - Discharge patient to home. - High fiber diet. - Continue present medications. - Await pathology results. - Repeat colonoscopy for surveillance based on pathology results. Procedure Code(s): --- Professional --- 21284, Colonoscopy, flexible; with removal of tumor(s), polyp(s), or other lesion(s) by snare technique Diagnosis Code(s): --- Professional --- Z86.010, Personal history of colonic polyps K64.9, Unspecified hemorrhoids D12.8, Benign neoplasm of rectum CPT copyright 2020 [employer]. All rights reserved. The codes documented in this report are preliminary and upon bankruptcy processor review may be revised to meet current compliance requirements. QUENTIN RICARDO Quentin Ricardo DO 02/18/2024 2:27:20 PM This report has been signed electronically.Quentin Ricardo DO Number of Addenda: 0 Note Initiated On: 02/18/2024 1:22 PM Scope Withdrawal Time: 0 hours 6 minutes 39 seconds Scope In: 2:15:02 PM Scope Out: 2:25:59 PM Endoscopy Department at [address] [id number] Procedure Note Quentin Ricardo DO - 02/18/2024 [facility] GI Patient Name: Sean Moran Procedure Date: 02/18/2024 1:22 PM Date of : 1960 Age: 63 Room: ROOM 16 Gender: Female Note Status: Finalized Attending MD: Quentin Ricardo DO,[id number] Procedure Date No Time: 02/18/2024 Procedure: Colonoscopy Indications: High risk colon cancer surveillance: Personalhistory of colonic polyps Providers: Quentin Ricardo DO Referring MD: KATELYN Wiley Medicines: Monitored Anesthesia Care Complications: No immediate complications. Estimated blood loss: Minimal. Estimated Blood Loss: Estimated blood loss was minimal. Procedure: Pre-Anesthesia Assessment: - - Prior to the procedure, a History and Physicalwas performed, and patient medications and allergieswere reviewed. The patient is competent. The risks and benefits of the procedure and the sedation optionsand risks were discussed with the patient. Allquestions were answered and informed consent was obtained. Patient identification and proposed procedure were verified by the physician, the nurse, the anesthesiologist, the garageman and thetechnician in the pre-procedure area in the endoscopy suite. Mental Status Examination: alert and oriented.Airway Examination: normal oropharyngeal airway and neck mobility. Respiratory Examination: clear to auscultation. CV Examination: normal. Prophylactic Antibiotics: The patient does not requireprophylactic antibiotics. Prior Anticoagulants: The patient has taken no anticoagulant or antiplatelet agents. ASA Grade Assessment: II - A patient with severesystemic disease. After reviewing the risks and benefits,the patient was deemed in satisfactory condition to undergo the procedure. The anesthesia plan was touse monitored anesthesia care (MAC). Immediately priorto administration of medications, the patient was re-assessed for adequacy to receive sedatives. The heart rate, respiratory rate, oxygen saturations, blood pressure, adequacy of pulmonary ventilation,and response to care were monitored throughout the procedure. The physical status of the patient was re-assessed after the procedure. After I obtained informed consent, the scope was passed under direct vision. Throughout theprocedure, the patient's blood pressure, pulse, and oxygen saturations were monitored continuously.The Colonoscope was introduced through the anus and advanced to the cecum, identified by appendiceal orifice and ileocecal valve. The colonoscopy was performed without difficulty. The patient tolerated the procedure well. The quality of the bowel preparation was good. Findings: Hemorrhoids were found on perianal exam. A few small-mouthed diverticula were found in the sigmoid colon and descending colon. There was no evidence of diverticular bleeding. A 6 mm polyp was found in the rectum. The polyp was sessile. The polyp was removed with a cold snare. Resection and retrieval were complete. Estimatedblood loss was minimal. The exam was otherwise without abnormality ondirect and retroflexion views. Impression: - Hemorrhoids found on perianal exam. - One 6 mm polyp in the rectum, removed with a cold snare. Resected and retrieved. - The examination was otherwise normal on directand retroflexion views. Recommendation: - - Discharge patient to home. - High fiber diet. - Continue present medications. - Await pathology results. - Repeat colonoscopy for surveillance based on pathology results. Procedure Code(s): --- Professional --- 34637, Colonoscopy, flexible; with removal of tumor(s), polyp(s), or other lesion(s) by snare technique Diagnosis Code(s): --- Professional --- Z86.010, Personal history of colonic polyps K64.9, Unspecified hemorrhoids D12.8, Benign neoplasm of rectum CPT copyright 2020 [employer]. All rights reserved. The codes documented in this report are preliminary and upon bankruptcy processor reviewmay be revised to meet current compliance requirements. QUENTIN RICARDO Quentin Ricardo DO 02/18/2024 2:27:20 PM This report has been signed electronically.Quentin Ricardo DO Number of Addenda: 0 Note Initiated On: 02/18/2024 1:22 PM Scope Withdrawal Time: 0 hours 6 minutes 39 seconds Scope In: 2:15:02 PM Scope Out: 2:25:59 PM Endoscopy Department at [address] [id number] Result [facility] Quentin Ricardo DO GI~PROCEDURE ORDERABLES Final Re sult * Diabetes Eye Exam (12/09/2023) [facility] Diabetes: Annual Retina Eye Exam abstracted Result [facility] Provider HEALTH MAINTENANCE Final Result * Diabetes Foot Exam (10/30/2023) [facility] Diabetes: Annual Foot Exam abstracted Result [facility] HEALTH MAINTENANCE Final Result * Urine Albumin Creatinine Ratio (07/07/2023) [facility] Urine Albumin Creatinine Ratio abstracted Result [facility] Provider HEALTH MAINTENANCE Final Result * Depression Screening (07/07/2023) [facility] Depression Screening abstracted Result [facility] Provider HEALTH MAINTENANCE Final Result * (ABNORMAL) Lipid panel (07/07/2023) [facility] LDL/HDL Ratio 4 0 - 4 Triglycerides 329(A) 0 - 150 mg/dL Cholesterol 177 0 - 200 mg/dL HDL 43 >=40 mg/dL LDL Cholesterol 69 0 - 100 mg/dL Blood Venous blood specimen / Unknown us Historical Provider LAB BLOOD ORDERABLES Katelynn l Result * Hepatitis C Screening (06/04/2019) Hepatitis C Screening abstracted Historical Provider HEALTH MAINTENANCE Final Result from Last 3 Months or Most Recently Relevant to Health Maintenance Insurance [facility] 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
--- OUTSIDE RECORDS SUMMARY | 2024-10-25 13:55 | XMS_ITS ---
Author Name [facility] Organization Unknown Encounters Encounter Type Encounter Reason Primary Diagnosis Location Date Ambulatory [facility] 01/23/2024 Care Team Organization Name Specialty Phone Email Start Date End Da te [facility] 2024
== END 2024-10-25 13:34 | disposition home or self-care (01) ==
LOC: HO.HSMS 12:59
PROVIDERS: PCP Internal Medicine; Visit Provider Nurse Practitioner Family
DX: G43.009 Migraine without aura, not intractable, without status migrainosus (principal); G47.9 Sleep disorder, unspecified; R11.0 Nausea
CPT/HCPCS: 99214

== ENCOUNTER → 2024-10-25 12:59 | Outpatient (BNVA) | payer OTHER, SELFPAY | PROVIDERS: PCP Internal Medicine; Visit Provider Nurse Practitioner Family | DX: G43.009 Migraine without aura, not intractable, without status migrainosus (principal); R11.0 Nausea; G47.9 Sleep disorder, unspecified | CPT/HCPCS: 99212 ==